=== PATIENT | male | born 1980 | race Caucasian/White ===

== ENCOUNTER 2025-02-02 10:48 | Emergency (ER) | payer BC ==
[2025-02-02] MEDS ORDERED: Tranexamic Acid 1,000 MG/10 ML VIAL ONE (11:47)
== END 2025-02-02 12:22 | disposition home or self-care (01) ==
LOC: CSHERS 10:48
DX: R04.0 Epistaxis (principal); I12.9 Hypertensive chronic kidney disease with stage 1 through stage 4 chronic kidney disease, or unspecified chronic kidney disease; E11.22 Type 2 diabetes mellitus with diabetic chronic kidney disease; N18.9 Chronic kidney disease, unspecified; Z87.891 Personal history of nicotine dependence; Z99.2 Dependence on renal dialysis; Z95.5 Presence of coronary angioplasty implant and graft
CPT/HCPCS: 99283